=== PATIENT | male | born 1985 | race Two or more races ===

== ENCOUNTER 2022-04-06 08:30 | Emergency (ER) | payer SELFPAY ==
[~2022-04-06] VITALS: Ht 172.7 cm; Wt 77.1 kg
[2022-04-06 08:35] VITALS: BP 108/71
== END 2022-04-06 12:12 | disposition left against medical advice (07) ==
LOC: ER 08:30
DX: S90.822A Blister (nonthermal), left foot, initial encounter (principal); Z53.21 Procedure and treatment not carried out due to patient leaving prior to being seen by health care provider; X58.XXXA Exposure to other specified factors, initial encounter; Y93.89 Activity, other specified; Y92.89 Other specified places as the place of occurrence of the external cause; Y99.8 Other external cause status

== ENCOUNTER 2024-06-07 09:19 | Emergency (ER) | payer MEDICAID, OTHER ==
[~2024-06-07] VITALS: Ht 172.7 cm; Wt 70.0 kg
[2024-06-07] MEDS: ONDANSETRON ODT 4 MG TAB PO ONE ×2 (10:53→11:41)
[2024-06-07 11:37] VITALS: BP 106/63; PULSE 68; RESP 24; O2SAT 98
[2024-06-07] MEDS: ONDANSETRON HCL 4 MG/2 ML VIAL IV ONE (11:38)
== END 2024-06-07 11:45 | disposition home or self-care (01) ==
LOC: ER 09:19 → EDBD 09:19 → ER 11:45
DX: F11.23 Opioid dependence with withdrawal (principal)
CPT/HCPCS: 36415; 71045; 85379; 99284; Q0162